=== PATIENT | female | born 1985 | race Caucasian/White ===

== ENCOUNTER 2025-02-03 09:09 | Outpatient (AMB) | payer BC, SELFPAY ==
--- NOTE | 2025-02-03 09:58 | AM.OFFWIN_ITS ---
Intake Vital Signs 02/03/25 10:00 Weight 138 lb BP 120/82 Blood Pressure Location Lt brachial Position Sitting Pulse 76 Pulse Source Pulse Oximeter Pulse Oximetry (%) 98 Oxygen Delivery Method Room Air Intake Visit Reasons: PE Dog bite on RT hand Intake Note: Patient here for dog bite on right hand. she states her dog seen a bear and she pulle don leash to get her dog away and he bit her. Patient Tobacco Use Status: Current everyday Tobacco user Allergies No Known Allergies Allergy (Verified 02/03/25 10:01) Do you need a note to return to daycare/school/sports/work: No HPI HPI Comments History of Present Illness Details History of Present Illness - The patient is a 39-year-old female pr esenting with a dog bite on her hand. - The incident occurred just [employer] [place] as the patient attempted to restrain her dog from a bear, resulting in a bite from the patient?s vaccinated dog. - Post-incident, the bite wounds were ir rigated with saline and iodine. - The patient verified that her last tet anus vaccine was within the past three years, records indicate it was in 2021. - The injury presents as painful, especi ally on the palm. - Patient noted that she would be travel ing to [place] in 8 days. Physical Exam General: Cooperative, healthy appearing, comfortable, no acute distress and well developed Orientation: Patient oriented x3 Limitations: No limitations Head: Normal to inspection Ears: Hearing grossly normal bilaterally Nose: Normal External nose present Face and sinus: Normal facial exam Eyes: Appearance normal, both eyes and all related structures Neck: Normal visual inspection and Yes full ROM Respiratory: Normal respiratory effort and able to speak in complete sentences. Skin: No rashes or lesions noted Neuro: Patient oriented x3 Extremities: Right hand palmar aspect has 2 small 0.25cm superficial wounds, not bleeding, no ecchymosis noted, slight swelling noted. right hand dorsum has 3 wounds, one linear superficial PFSH Social History Patient Tobacco Use Status: Current everyday Tobacco user Review of Systems Const All systems reviewed & are unremarkable except as noted in HPI and below Physical Exam Vital Signs: Last Vital Signs Pulse 76 02/03/25 10:00 BP 120/82 02/03/25 10:00 Pulse Ox 98 02/03/25 10:00 Oxygen Delivery Method Room Air 02/03/25 10:00 Assessment & Plan Assessment & Plan (1) Dog bite of dorsum of hand: Code(s): S61.459A - Open bite of unspecified hand, initial encounter; W54.0XXA - Bitten by dog, initial encounter Plan: Tetanus is up to date, was in 2021. I prescribed Augmentin for seven days to prevent bacterial infection following the dog bite. The patient was instructed to observe for signs of infection, such as redness or fever, drainage or increasing pain and to seek further care if symptoms develop or worsen. For pain management, I suggested using [id number] measures like Tylenol. Ice application is recommended to manage swelling, applying for twenty minutes every two to three hours. The patient is to keep the wound clean, dry, and covered when in public but can leave it uncovered at home. Suggested Aquaphor for healing once scabbed over, Bacitracin until then, while leaving further interventions open depending on the wound's progress and upcoming travel plans. Patient was informed and verbally consented to the use of an ambient scribe for clinic note documentation during this visit. Medications: New amoxicillin-pot clavulanate 875-125 mg 1 tab PO Q12H 14 tabs 0RF Coding Level of Care Code New Pt Level 3 (62555) Diagnoses Dog bite of dorsum of hand S61.459A; W54.0XXA
[2025-02-03 10:00] VITALS: BP 120/82; PULSE 76; O2SAT 98
== END 2025-02-03 10:33 | disposition home or self-care (01) ==
PROVIDERS: PCP Internal Medicine; Visit Provider Physician Assistant
DX: S61.451A Open bite of right hand, initial encounter (principal); W54.0XXA Bitten by dog, initial encounter

== ENCOUNTER → 2025-02-03 09:09 | Outpatient (BNVA) | payer BC, SELFPAY | PROVIDERS: PCP Internal Medicine; Visit Provider Physician Assistant | DX: Z13.89 Encounter for screening for other disorder (principal) ==

== ENCOUNTER → 2025-02-07 09:09 | Outpatient (BNVA) | payer BC, SELFPAY | PROVIDERS: PCP Internal Medicine ==